=== PATIENT | female | born 1940 | race Caucasian/White ===

== ENCOUNTER 2018-12-20 20:19 | Inpatient (IN) | payer MEDICARE, OTHER ==
[~2018-12-20] VITALS: Ht 157.5 cm; Wt 81.1 kg
[2018-12-20] MEDS ORDERED: ONDANSETRON 4MG/2ML VIAL (J2405) IV ONE (21:00)
[2018-12-20] MEDS: NS 1,000 ML IV SCH (21:23)
[2018-12-20 21:31] LABS: BASO % 0.7 % (0.0-1.0); EOS # 0.1 10^3/uL (0.0-0.50); EOS % 1.9 % (0.0-3.0); HEMATOCRIT 42.1 % (36.0-47.0); HEMOGLOBIN 13.4 g/dl (12.0-15.5); LYMPH # 1.2 10^3/uL (1.5-4.5); LYMPH % 21.4 % (24.0-44.0); MEAN CORPUSCULAR HEMOGLOBIN 24.8 pg (27.0-33.0); MEAN CORPUSCULAR HGB CONC 31.8 g/dl (32.0-36.5); MONO # 0.6 10^3/uL (0.0-0.8); MONO % 9.9 % (0.0-5.0); NEUTROPHILS # 3.8 10^3/uL (1.8-7.7); NEUTROPHILS % 65.9 % (36.0-66.0); PLATELET COUNT, AUTOMATED 194 10^3/uL (150-450); WHITE BLOOD COUNT 5.7 10^3/uL (4.0-10.0)
[2018-12-20 22:00] LABS: ALBUMIN 3.7 GM/DL (3.2-5.2); BILIRUBIN,DIRECT 0.2 MG/DL (0.0-0.2); BILIRUBIN,TOTAL 0.5 MG/DL (0.2-1.0); CALCIUM LEVEL 9.4 MG/DL (8.8-10.2); CREATININE FOR GFR 2.32 MG/DL (0.55-1.30); GLOMERULAR FILTRATION RATE 21.7 (>39); POTASSIUM SERUM 3.8 MEQ/L (3.5-5.1); TOTAL PROTEIN 6.8 GM/DL (6.4-8.2)
[2018-12-20] MEDS: GASTROGRAFIN SOLUTION 30ML PO SCH ×2 (22:55→23:37)
--- NOTE | 2018-12-21 02:25 | REPVR ---
EXAM: CT Abdomen and Pelvis Without Contrast EXAM DATE/TIME: 12/20/2018 10:02 PM CLINICAL HISTORY: 78 years old, female; Abdominal pain; Generalized; Additional info: Abd pain, vomiting TECHNIQUE: Imaging protocol: Axial computed tomography images of the abdomen and pelvis without contrast. Coronal and sagittal reformatted images were created and reviewed. Radiation optimization: All CT scans at this facility use at least one of these dose optimization techniques: automated exposure control; mA and/or kV adjustment per patient size (includes targeted exams where dose is matched to clinical indication); or iterative reconstruction. COMPARISON: No relevant prior studies available. Study limitations: Evaluation for mass, inflammatory change, including bowel wall/fold thickening, viscera, and vasculature, is suboptimal without contrast. Images through the pelvis are partially nondiagnostic, secondary to streak artifact from metallic hardware. The entire body wall is not included in the [id number]. FINDINGS: LUNG BASES: Mild scattered groundglass opacities in the visualized lung bases may be secondary to atelectasis, mild pulmonary edema or pneumonitis. Clinical correlation with symptoms. Subpleural reticular opacities noted which may be secondary to atelectasis and/or scarring. VASCULAR: Mild to moderate cardiac enlargement. Pacemaker leads noted. Coronary arterial calcifications. No abdominal aortic aneurysm or retroperitoneal hematoma. There is aortoiliac, femoral and visceral arterial atherosclerosis PERITONEAL : Evaluation through the pelvis is slightly compromised by streak artifact. No obvious free fluid is seen. No free intraperitoneal air is seen. GI: No hiatal hernia. The stomach contains some contrast and gas. The stomach is not sufficiently distended for complete diagnostic evaluation by this exam. No perigastric or periduodenal inflammatory stranding is seen however. No appearance of small bowel obstruction. There is no focal mesenteric inflammatory stranding. Small nonspecific mesenteric lymph nodes are seen. Perianal inflammation cannot be excluded. Scattered fecal material and gas slightly distending portions of the colon and rectum up to 7 cm in diameter. This could be correlated with any symptoms of mild constipation. No pericolonic inflammatory stranding. No evidence of acute diverticulitis. The appendix is not visualized. No secondary inflammation is seen. HEPATOBILIARY, PANCREAS, SPLEEN: Sagittal hepatic length is 17.3 cm. Hepatic attenuation is greater than 90 Hounsfield units which is greater than the spleen (50 Hounsfield units). This may suggest iron deposition within the liver. There may be mild periportal edema versus intrahepatic biliary ductal dilation. Correlation with LFTs would be helpful. The gallbladder is not visualized and may been removed. No pancreatic inflammation. Spleen not enlarged. ADRENALS, KIDNEYS, BLADDER, RETROPERITONEAL: Adrenals within normal limits. No hydronephrosis. Mild nonspecific perinephric stranding. Evaluation of renal parenchyma is limited on noncontrast evaluation. No renal calculi. Evaluation of the distal ureters is compromised by streak artifact. Evaluation of the urinary bladder is partially compromised by streak artifact. No perivesical stranding is seen. PELVIC: Evaluation of the pelvic viscera is partially compromised by streak artifact. No obvious dominant cystic pelvic mass seen. The uterus may have been removed. MUSCULOSKELETAL: Punctate breast calcifications incompletely assessed. Correlation with clinical breast exam and recent mammogram is advised. These are difficult to further characterize by this study. Degenerative changes of the spine and within the pelvis are noted. 12 mm sclerotic lesion within the L3 vertebral body of uncertain significance but could be correlated with risk factors. If there are no elevated risk factors, this may represent a bone island. Right hip replacement noted, incompletely assessed, extending below the level level of imaging. IMPRESSION: Study limitations discussed above. Nonspecific gastrointestinal findings to be correlated clinically as discussed above. Elevated hepatic attenuation be correlated with LFTs. Findings discussed above in detail. Other incidental and non-emergent findings and non-emergent recommendations discussed above. Electronically signed by: Kelvin Gutierrez On 12/21/2018 02:24:54 AM
[2018-12-21] MEDS ORDERED: METF500T13 PO (03:05)
[2018-12-21] MEDS ORDERED: ATOR40TA75 PO (03:05)
[2018-12-21] MEDS ORDERED: PANT20TA51 PO (03:05)
[2018-12-21] MEDS ORDERED: L-LY500T9 PO (03:05)
[2018-12-21] MEDS ORDERED: GABA600T4 PO (03:05)
[2018-12-21] MEDS ORDERED: BIOT5TAB3 PO (03:05)
[2018-12-21] MEDS ORDERED: AMIO200T PO (03:05)
[2018-12-21] MEDS ORDERED: GLUCOSE 4 GM CHEW TABLET PO PRN (03:15)
[2018-12-21] MEDS ORDERED: ACETAMINOPHEN TAB 650MG DOSE (2X325MG) PO PRN (03:15)
[2018-12-21] MEDS ORDERED: GLUCAGON FOR INJ 1 MG VIAL (J1610) SC PRN (03:15)
[2018-12-21] MEDS ORDERED: DEXTROSE 50% 50 ML SYRINGE IV PRN (03:15)
--- NOTE | 2018-12-21 03:23 | HPEPDOC ---
General Date of Admission Dec 20, 2018 at 20:20 Date of Service: Dec 21, 2018 Attending Physician: JOSHUA TALLEY MD Chief Complaint The patient is a 78-year-old female admitted with a reason for visit of Acute Renal Failure, Vomiting. Source: Patient Exam Limitations: No limitations Timing/Duration: Day(s) Severity: Moderate Associated Symptoms: Nausea, Vomiting History of Present Illness 78 years old female with past medical history of diabetes mellitus, CABG, status post pacemaker placement, right total hip surgery, left knee surgery and hypertension, visiting from [place], came in with chief complaints of nausea, vomiting since yesterday, unable to keep anything down. Patient offers no complaints of chest pain, shortness of breath, diarrhea, etc. Home Medications Scheduled Amiodarone HCl (Amiodarone HCl) 200 Mg Tablet, 200 MG PO BID, (Reported) Atorvastatin Calcium (Atorvastatin Calcium) 40 Mg Tablet, 40 MG PO DAILY, (Reported) Biotin (Biotin) 5 Mg Tablet, 5 MG PO DAILY, (Reported) Gabapentin (Gabapentin) 600 Mg Tablet, 600 MG PO TID, (Reported) Lysine HCl (l-Lysine) 500 Mg Tablet, 500 MG PO DAILY, (Reported) Metformin HCl (Metformin HCl) 500 Mg Tablet, 500 MG PO BID, (Reported) Pantoprazole Sodium (Pantoprazole Sodium) 20 Mg Tablet.dr, 20 MG PO DAILY, (Reported) Allergies Coded Allergies: acetaminophen (Verified Allergy, Unknown, 12/21/18) codeine (Verified Allergy, Unknown, 12/20/18) indomethacin (Verified Allergy, Unknown, 12/20/18) metoprolol (Verified Allergy, Unknown, 12/20/18) oxycodone (Verified Allergy, Unknown, 12/21/18) Past Medical History Medical History Diabetes mellitus, hypertension, status post right total hip surgery, status post left total knee surgery, hysterectomy, status post CABG and is status post pacemaker placement Surgical History As above Family History Significant Family History: No pertinent family hx Social History * Smoker: Denies Alcohol: Denies Drugs: denies A-FIB/CHADSVASC A-FIB History Current/History of A-Fib/PAF?: No Review of Systems Constitutional: Denies: Chills, Fever, Malaise, Night Sweats, Weakness, Fatigue, Weight Loss, Lethargy, Other Eyes: Denies: Pain, Vision change, Conjunctivae inflammation, Eyelid inflammation, Redness, Other ENT: Denies: Head Aches, Ear Pain, Dysphagia, Sinus Congestion, Post Nasal Drip, Sore Throat, Epistaxis, Other Symptoms Skin: Denies: Rash, Lesions, Jaundice, Bruising, Itching, Dry, Breakdown, Nail Changes, Other Pulmonary: Denies: Dyspnea, Cough, Pleuritic Chest Pain, Other Symptoms Cardiovascular: Denies: Chest Pain, Palpitations, Orthopnea, Paroxysmal Noc. Dyspnea, Edema, Lt Headedness, Other Symptoms Gastrointestinal: Reports: Nausea, Vomiting Genitourinary: Denies: Dysuria, Frequency, Incontinence, Hematuria, Retention, Other Symptoms Hematologic: Denies: Bruising, Bleeding Excessively, Petecchia, Purpura, Enlarged Lymph Nodes, Other Hematologic Endocrine: Denies: Polydipsia, Polyphagia, Polyuria, Heat Intolerance, Cold Intolerance, Other Endocrine Sx Musculoskeletal: Denies: Neck Pain, Back Pain, Shoulder Pain, Arm Pain, Hand Pain, Leg Pain, Foot Pain, Joint Pain, Muscle Pain, Spasms, Other Symptoms Neurological: Denies: Weakness, Numbness, Incoordination, Change in speech, Confusion, Seizures, Other Symptoms Psych: Denies: Mood Normal, Anxiety, Depression, Memory Issues, Thoughts of Self Harm, Anger, Thoughts of Harming Other, Other Psych Physical Examination General Exam: Positive: Alert Eye Exam: Positive: Conjunctiva & lids normal ENT Exam: Positive: Atraumatic Neck Exam: Positive: Supple, JVD Chest Exam: Positive: Clear to auscultation, Normal air movement Heart Exam: Positive: Rate Normal, Normal S1, Normal S2 Abdomen Exam: Positive: Normal bowel sounds, Soft Extremity Exam: Positive: Normal pulses Skin Exam: Positive: Nl turgor and temperature Neuro Exam: Positive: Normal Speech, Strength at 5/5 X4 ext, Sensation Intact Psych Exam: Positive: Mental status NL, Mood NL, Oriented x 3 Vital Signs Vital Signs Date Time Temp Pulse Resp B/P (MAP) Pulse Ox O2 Delivery O2 Flow Rate FiO2 12/21/18 02:54 96.4 71 16 176/89 (118) 97 Room Air Laboratory Data Labs 24H Laboratory Tests 2 12/20/18 21:12: Urine Color YELLOW, Urine Appearance HAZY, Urine pH 6.0, Urine Specific [place] 1.015, Urine Protein NEGATIVE, Urine Glucose (UA) NEGATIVE, Urine Ketones NEGATIVE, Urine Blood NEGATIVE, Urine Nitrite NEGATIVE, Urine Bilirubin NE GATIVE, Urine Urobilinogen 0.2, Urine Leukocyte Esterase 3+H, Urine WBC (Auto) 5H, Urine RBC (Auto) 3, Urine Hyaline Casts (Auto) 0, Urine Bacteria (Auto) 1+H, Urine Squamous Epithelial Cells 7, Urine Sperm (Auto) 12/20/18 21:18: Immature Granulocyte % (Auto) 0.2, White Blood Count 5.7, Red Blood Count 5.40, Hemoglobin 13.4, Hematocrit 42.1, Mean Corpuscular Volume 78.0L, Mean Corpuscular Hemoglobin 24.8L, Mean Corpuscular Hemoglobin Concent 31.8L, Red Cell Distribution Width 17.2H, Platelet Count 194, Neutrophils (%) (Auto) 65.9, Lymphocytes (%) (Auto) 21.4L, Monocytes (%) (Auto) 9.9H, Eosinophils (%) (Auto) 1.9, Basophils (%) (Auto) 0.7, Neutrophils # (Auto) 3.8, Lymphocytes # (Auto) 1.2L, Monocytes # (Auto) 0.6, Eosinophils # (Auto) 0.1, Basophils # (Auto) 0.0, Nucleated Red Blood Cells % (auto) 0.0, Anion Gap 8, Glomerular Filtration Rate 21.7L, Calcium Level 9.4, Aspartate Amino Transf (AST/SGOT) 88H, Alanine Aminotransferase (ALT/SGPT) 120H, Alkaline Phosphatase 95, Total Bilirubin 0.5, Direct Bilirubin 0.2, Total Protein 6.8, Albumin 3.7, Albumin/Globulin Ratio 1.19, Lipase 158 CBC/BMP Laboratory Tests 12/20/18 21:18 Red Blood Count 5.40, Mean Corpuscular Volume 78.0 L, Mean Corpuscular Hemoglobin 24.8 L, Mean Corpuscular Hemoglobin Concent 31.8 L, Red Cell Distribution Width 17.2 H, Neutrophils (%) (Auto) 65.9, Lymphocytes (%) (Auto) 21.4 L, Monocytes (%) (Auto) 9.9 H, Eosinophils (%) (Auto) 1.9, Basophils (%) (Auto) 0.7, Neutrophils # (Auto) 3.8, Lymphocytes # (Auto) 1.2 L, Monocytes # (Auto) 0.6, Eosinophils # (Auto) 0.1, Basophils # (Auto) 0.0 Microbiology Microbiology 12/20/18 Urine Culture, Received Pending Problems (1) Acute renal failure (ARF) Status: Acute Problem Text: Most likely secondary to dehydration, which is most likely secondary to persistent vomiting Patient is being admitted for IV hydration and close observation for 24 hours IV fluids normal saline at 150 mL per hour Protonix 40 mg IV push every 24 hours Zofran 4 mg IV every 4 hours when necessary Fingerstick blood sugar coverage every 6 hours with regular insulin Symptomatic and supportive care Repeat labs in a.m. Nothing by mouth DVT prophylaxis with Lovenox (2) Dehydration Problem Text: As above Plan / VTE VTE Prophylaxis Ordered?: Yes JOSHUA TALLEY MD Dec 21, 2018 03:23
[2018-12-21] MEDS: NS 1,000 ML IV SCH ×3 (03:39→10:21)
[2018-12-21] MEDS: ONDANSETRON 4MG/2ML VIAL (J2405) IV SCH ×5 (05:16→19:53)
[2018-12-21] MEDS: HumaLOG INSULIN (NovoLOG) PER UNIT SC SCH ×3 (06:00→18:00)
[2018-12-21] MEDS ORDERED: ENOXAPARIN 30 MG/0.3 ML SYR (J1650) SC SCH (06:00)
[2018-12-21] MEDS: PANTOPRAZOLE 40MG INJ (PROTONIX) (C9113) IV SCH (06:49)
[2018-12-21 08:01] LABS: BASO # 0.1 10^3/uL (0.0-0.2); BASO % 1.2 % (0.0-1.0); EOS # 0.2 10^3/uL (0.0-0.50); EOS % 3.5 % (0.0-3.0); HEMATOCRIT 38.3 % (36.0-47.0); HEMOGLOBIN 11.9 g/dl (12.0-15.5); LYMPH # 1.3 10^3/uL (1.5-4.5); LYMPH % 25.7 % (24.0-44.0); MEAN CORPUSCULAR HEMOGLOBIN 24.1 pg (27.0-33.0); MEAN CORPUSCULAR HGB CONC 31.1 g/dl (32.0-36.5); MEAN CORPUSCULAR VOLUME 77.5 fl (80.0-96.0); MONO # 0.5 10^3/uL (0.0-0.8); MONO % 9.7 % (0.0-5.0); NEUTROPHILS # 3.1 10^3/uL (1.8-7.7); NEUTROPHILS % 59.5 % (36.0-66.0); PLATELET COUNT, AUTOMATED 182 10^3/uL (150-450); RED BLOOD COUNT 4.94 10^6/uL (4.00-5.40); WHITE BLOOD COUNT 5.1 10^3/uL (4.0-10.0)
[2018-12-21 08:19] LABS: CALCIUM LEVEL 8.4 MG/DL (8.8-10.2); CREATININE FOR GFR 2.11 MG/DL (0.55-1.30); GLOMERULAR FILTRATION RATE 24.2 (>39); POTASSIUM SERUM 3.7 MEQ/L (3.5-5.1)
[2018-12-21] MEDS: GABAPENTIN 300 MG CAP PO SCH ×3 (08:54→19:45)
[2018-12-21] MEDS: ATORVASTATIN 20 MG TAB PO SCH (08:54)
[2018-12-21] MEDS: AMIODARONE 200 MG TAB (PACERONE) PO SCH ×2 (08:54→19:52)
[2018-12-21] MEDS ORDERED: ENOXAPARIN 40 MG/0.4 ML SYRINGE (J1650) SC SCH (09:00)
[2018-12-21 09:44] LABS: ALBUMIN 3.2 GM/DL (3.2-5.2); BILIRUBIN,DIRECT 0.2 MG/DL (0.0-0.2); BILIRUBIN,TOTAL 0.4 MG/DL (0.2-1.0); TOTAL PROTEIN 6.3 GM/DL (6.4-8.2)
[2018-12-21] MEDS ORDERED: cloNIDine 0.1 MG TAB PO ONE (12:45)
[2018-12-21] MEDS: SIMETHICONE 80 MG CHEW TAB PO SCH ×3 (13:34→19:52)
[2018-12-21] MEDS: SENOKOT S TAB PO SCH (13:35)
[2018-12-21] MEDS: amLODIPine 5 MG TAB PO SCH ×2 (13:35→19:52)
[2018-12-21 14:32] VITALS: BP_SYST 156; BP_SYST 166; BP_DIAS 82; BP_DIAS 89
[2018-12-21 19:52] VITALS: BP 150/82
[2018-12-21 22:00] VITALS: BP 150/82
[2018-12-22] MEDS: ONDANSETRON 4MG/2ML VIAL (J2405) IV SCH ×4 (03:02→12:00)
[2018-12-22] MEDS: HumaLOG INSULIN (NovoLOG) PER UNIT SC SCH ×2 (05:26)
[2018-12-22] MEDS: PANTOPRAZOLE 40MG INJ (PROTONIX) (C9113) IV SCH (05:27)
[2018-12-22 06:00] VITALS: BP 158/86
[2018-12-22 06:13] LABS: BASO % 0.8 % (0.0-1.0); EOS # 0.2 10^3/uL (0.0-0.50); EOS % 4.6 % (0.0-3.0); HEMATOCRIT 38.9 % (36.0-47.0); HEMOGLOBIN 12.1 g/dl (12.0-15.5); LYMPH # 1.2 10^3/uL (1.5-4.5); LYMPH % 24.3 % (24.0-44.0); MEAN CORPUSCULAR HEMOGLOBIN 24.2 pg (27.0-33.0); MEAN CORPUSCULAR HGB CONC 31.1 g/dl (32.0-36.5); MONO # 0.5 10^3/uL (0.0-0.8); MONO % 10.8 % (0.0-5.0); NEUTROPHILS # 2.9 10^3/uL (1.8-7.7); NEUTROPHILS % 59.3 % (36.0-66.0); PLATELET COUNT, AUTOMATED 178 10^3/uL (150-450); RED BLOOD COUNT 4.99 10^6/uL (4.00-5.40); WHITE BLOOD COUNT 4.8 10^3/uL (4.0-10.0)
[2018-12-22 06:45] LABS: BILIRUBIN,TOTAL 0.5 MG/DL (0.2-1.0); CALCIUM LEVEL 8.4 MG/DL (8.8-10.2); CREATININE FOR GFR 1.94 MG/DL (0.55-1.30); GLOMERULAR FILTRATION RATE 26.6 (>39); MAGNESIUM LEVEL 1.4 MG/DL (1.8-2.4); POTASSIUM SERUM 3.9 MEQ/L (3.5-5.1); TOTAL PROTEIN 6.2 GM/DL (6.4-8.2)
[2018-12-22] MEDS ORDERED: HEPARIN SOD (PORCINE) 5000 UNITS/ML VIAL SQ SCH (09:00)
[2018-12-22] MEDS ORDERED: MAGNESIUM OXIDE 400 MG TAB (MAG-OX) PO ONE (09:15)
[2018-12-22] MEDS: SENOKOT S TAB PO SCH (10:24)
[2018-12-22] MEDS: GABAPENTIN 300 MG CAP PO SCH (10:24)
[2018-12-22] MEDS: amLODIPine 5 MG TAB PO SCH (10:25)
[2018-12-22] MEDS: ATORVASTATIN 20 MG TAB PO SCH (10:25)
[2018-12-22] MEDS: AMIODARONE 200 MG TAB (PACERONE) PO SCH (10:25)
[2018-12-22] MEDS: SIMETHICONE 80 MG CHEW TAB PO SCH (10:25)
[2018-12-22] MEDS ORDERED: GLUCAGON FOR INJ 1 MG VIAL (J1610) SC PRN (11:15)
[2018-12-22] MEDS ORDERED: DEXTROSE 50% 50 ML SYRINGE IV PRN (11:15)
[2018-12-22] MEDS ORDERED: GLUCOSE 4 GM CHEW TABLET PO PRN (11:15)
[2018-12-22] MEDS ORDERED: AMLO5TAB6 PO (11:47)
[2018-12-22] MEDS ORDERED: HumaLOG INSULIN (NovoLOG) PER UNIT SC SCH ×2 (12:00→21:00)
--- NOTE | 2018-12-22 17:41 | DS.PDOC ---
Discharge Summary General Date of Admission Dec 21, 2018 at 12:41 Date of Discharge 12/22/18 Attending Physician: ANN MATHIAS MD Discharge Summary PROCEDURES PERFORMED DURING STAY: [None]. ADMITTING DIAGNOSES: 1. intractable nausea DISCHARGE DIAGNOSES: 1. Possible gastritis 2. COMPLICATIONS/CHIEF COMPLAINT: Acute Renal Failure, Vomiting. HISTORY OF PRESENT ILLNESS: . HOSPITAL COURSE: . DISCHARGE MEDICATIONS: Please see below. ALLERGIES: Please see below. PHYSICAL EXAMINATION ON DISCHARGE: VITAL SIGNS: Please see below. GENERAL: HEENT: NECK: CARDIOVASCULAR EXAMINATION: RESPIRATORY EXAMINATION: ABDOMINAL EXAMINATION: EXTREMITIES: SKIN: NEUROLOGICAL EXAMINATION: PSYCHIATRIC EXAMINATION: LABORATORY DATA: Please see below. IMAGING: PROGNOSIS: ACTIVITY: [As tolerated]. DIET: DISCHARGE PLAN: DISPOSITION: Home, Self-Care. DISCHARGE INSTRUCTIONS: 1. . ITEMS TO FOLLOWUP ON ON OUTPATIENT: 1. . DISCHARGE CONDITION: [Stable]. TIME SPENT ON DISCHARGE: Greater than minutes. Vital Signs/I&Os Vital Signs Date Time Temp Pulse Resp B/P (MAP) Pulse Ox O2 Delivery O2 Flow Rate FiO2 12/22/18 06:00 97.6 74 16 158/86 (110) 96 12/21/18 14:26 Room Air I&O- Last 24 Hours up to 6 AM 12/22/18 06:00 Intake Total 1220 ml Output Total 0 ml Balance 1220 ml Laboratory Data Labs 24H Laboratory Tests 2 12/21/18 18:05: Bedside Glucose (Misc Panel) 144H 12/22/18 00:31: Bedside Glucose (Misc Panel) 101 12/22/18 05:26: Bedside Glucose (Misc Panel) 97 12/22/18 05:29: Immature Granulocyte % (Auto) 0.2, White Blood Count 4.8, Red Blood Count 4.99, Hemoglobin 12.1, Hematocrit 38.9, Mean Corpuscular Volume 78.0L, Mean Corpuscular Hemoglobin 24.2L, Mean Corpuscular Hemoglobin Concent 31.1L, Red Cell Distribution Width 17.3H, Platelet Count 178, Neutrophils (%) (Auto) 59.3, Lymphocytes (%) (Auto) 24.3, Monocytes (%) (Auto) 10.8H, Eosinophils (%) (Auto) 4.6H, Basophils (%) (Auto) 0.8, Neutrophils # (Auto) 2.9, Lymphocytes # (Auto) 1.2L, Monocytes # (Auto) 0.5, Eosinophils # (Auto) 0.2, Basophils # (Auto) 0.0, Nucleated Red Blood Cells % (auto) 0.0, Anion Gap 6L, Glomerular Filtration Rate 26.6L, Blood Urea Nitrogen 28H, Creatinine 1.94H, Sodium Level 140, Potassium Level 3.9, Chloride Level 104, Carbon Dioxide Level 30, Calcium Level 8.4L, Aspartate Amino Transf (AST/SGOT) 66H, Alanine Aminotransferase (ALT/SGPT) 99H, Alkaline Phosphatase 81, Total Bilirubin 0.5, Total Protein 6.2L, Albumin 3.0L, Magnesium Level 1.4L, Albumin/Globulin Ratio 0.94L 12/22/18 11:48: Bedside Glucose (Misc Panel) 118H CBC/BMP Laboratory Tests 12/22/18 05:29 Red Blood Count 4.99, Mean Corpuscular Volume 78.0 L, Mean Corpuscular Hemoglobin 24.2 L, Mean Corpuscular Hemoglobin Concent 31.1 L, Red Cell Distr ibution Width 17.3 H, Neutrophils (%) (Auto) 59.3, Lymphocytes (%) (Auto) 24.3, Monocytes (%) (Auto) 10.8 H, Eosinophils (%) (Auto) 4.6 H, Basophils (%) (Auto) 0.8, Neutrophils # (Auto) 2.9, Lymphocytes # (Auto) 1.2 L, Monocytes # (Auto) 0.5, Eosinophils # (Auto) 0.2, Basophils # (Auto) 0.0, Calcium Level 8.4 L, Aspartate Amino Transf (AST/SGOT) 66 H, Alanine Aminotransferase (ALT/SGPT) 99 H, Alkaline Phosphatase 81, Total Bilirubin 0.5, Total Protein 6.2 L, Albumin 3.0 L FSBS Laboratory Tests Test 12/21/18 18:05 12/22/18 00:31 12/22/18 05:26 12/22/18 11:48 Range/Units Bedside Glucose (Misc Panel) 144 101 97 118 83-110 MG/DL Microbiology Microbiology 12/20/18 Urine Culture - Final, Complete Discharge Medications Scheduled Amiodarone HCl (Amiodarone HCl) 200 Mg Tablet, 200 MG PO BID, (Reported) Amlodipine Besylate (Amlodipine Besylate) 5 Mg Tablet, 5 MG PO BID Atorvastatin Calcium (Atorvastatin Calcium) 40 Mg Tablet, 40 MG PO DAILY, (Reported) Biotin (Biotin) 5 Mg Tablet, 5 MG PO DAILY, (Reported) Gabapentin (Gabapentin) 600 Mg Tablet, 600 MG PO TID, (Reported) Lysine HCl (l-Lysine) 500 Mg Tablet, 500 MG PO DAILY, (Reported) Metformin HCl (Metformin HCl) 500 Mg Tablet, 500 MG PO BID, (Reported) Pantoprazole Sodium (Pantoprazole Sodium) 20 Mg Tablet.dr, 20 MG PO DAILY, (Reported) Allergies Coded Allergies: acetaminophen (Verified Allergy, Unknown, 12/21/18) codeine (Verified Allergy, Unknown, 12/20/18) indomethacin (Verified Allergy, Unknown, 12/20/18) metoprolol (Verified Allergy, Unknown, 12/20/18) oxycodone (Verified Allergy, Unknown, 12/21/18) GME ATTESTATION GME ATTESTATION My faculty preceptor for this patient encounter was physically present during the encounter and was fully available. All aspects of the patient interview, examination, medical decision making process, and medical care plan development were reviewed and approved by the faculty preceptor. The faculty preceptor is aware and concurs with the plan as stated in the body of this note and will attest to such by his/her cosignature. AMANDA BAIN DO Dec 22, 2018 17:41
== END 2018-12-22 13:54 | disposition home or self-care (01) | DRG 392 ==
LOC: M ED 20:19 → M ED INP 20:20 → INTOOBSV 12-21 12:41 → OBSVTOIN 12-21 12:41 → M MSPAV 12-21 14:33
PROVIDERS: ADMIT Internal Medicine; ATTEND Internal Medicine
DX: K29.70 Gastritis, unspecified, without bleeding (principal); N17.9 Acute kidney failure, unspecified; E86.0 Dehydration; Z79.899 Other long term (current) drug therapy; Z88.5 Allergy status to narcotic agent; E11.9 Type 2 diabetes mellitus without complications; Z95.1 Presence of aortocoronary bypass graft; Z95.0 Presence of cardiac pacemaker; I10 Essential (primary) hypertension; Z96.641 Presence of right artificial hip joint